=== PATIENT | male | born 1990 | race American Indian/Alaskan Native ===

== ENCOUNTER 2019-02-20 15:19 | Emergency (ER) | payer MEDICAID ==
[2019-02-20] MEDS ORDERED: SODIUM CHLORIDE 0.9% 500 ML 500 ML IV ONE (15:33)
[2019-02-20] MEDS ORDERED: ACETAMINOPHEN 500 MG TAB PO ONE (15:33)
[2019-02-20 16:08] LABS: Basophils % (Auto) 0.4 % (0.0-1.8); Hematocrit 43.2 % (35.5-45.6); Hemoglobin 14.5 gm/dl (11.8-15.2); Lymphocytes # (Auto) 0.7 K/mm3 (1.2-5.4); Lymphocytes % (Auto) 7.4 % (13.4-35.0); Mean Corpuscular HGB Conc 34 % (32-34); Mean Corpuscular Volume 89 fl (84-94); Monocytes # (Auto) 0.9 K/mm3 (0.0-0.8); Monocytes % (Auto) 9.4 % (0.0-7.3); Platelet Count 218 K/mm3 (140-440); Red Blood Count 4.86 M/mm3 (3.65-5.03); Red Cell Distribution Width 14.1 % (13.2-15.2)
[2019-02-20 16:17] LABS: INR 1.27 (0.87-1.13)
[2019-02-20 16:30] LABS: Alanine Aminotransferase 37 units/L (7-56); Albumin 3.8 g/dL (3.9-5); BUN/Creatinine Ratio 13; Blood Urea Nitrogen 14 mg/dL (9-20); Hemolysis Index 39
--- NOTE | 2019-02-20 16:31 | XRay Report ---
CHEST 1 VIEW [id number] INDICATION / CLINICAL INFORMATION: possible Sepsis. COMPARISON: None available. FINDINGS: SUPPORT DEVICES: None HEART / MEDIASTINUM: No significant abnormality. LUNGS / PLEURA: Increased density is seen in the retrocardiac area with poor definition of the left h emidiaphragm. Findings are of concern for pneumonitis. Right lung field is clear. There may be a smal l left pleural effusion. No pneumothorax. ADDITIONAL FINDINGS: No significant additional findings. IMPRESSION: Probable left lower lobe pneumonia. Recommend clinical correlation and follow-up. Signer Name: Brandon Canela MD Signed: 02/20/2019 4:26 PM Workstation Name: [id number]
[2019-02-20] MEDS ORDERED: SODIUM CHLORIDE 0.9% 1000 ML 1,000 ML IV ONE (17:26)
[2019-02-20] MEDS ORDERED: cefTRIAXone/NS 1 GM/50 ML 1 GM/50 ML BAG IV ONE (17:27)
--- NOTE | 2019-02-20 17:38 | Emergency Department Report ---
ED General Adult HPI - General Chief complaint: Fever Stated complaint: VOMIT Time Seen by Provider: 02/20/19 17:14 Source: patient Mode of arrival: Ambulatory Limitations: No Limitations - History of Present Illness Initial comments: 28 yo male reports nausea,vomiting, cough and fever started last night. Children at home with same symptoms. Denies any PMH, Non-smoker. He denies chest pain , sob, abdominal pain and diarrhea. -: Sudden Severity scale (0 -10): 0 Quality: aching Improves with: none Worsens with: none Associated Symptoms: cough, fever/chills, loss of appetite, malaise, nausea/vomiting. denies: confusion, chest pain, diaphoresis, headaches, rash, seizure, shortness of breath, syncope, weakness Treatments Prior to Arrival: none - Related Data Previous Rx's Medication Instructions Recorded Last Taken Type RX: Azithromycin [Zithromax Z-MALLORY] 0 mg PO DAILY #6 tab 02/20/19 Unknown Rx Allergies Allergy/AdvReac Type Severity Reaction Status Date / Time No Known Allergies Allergy Unverified 02/20/19 15:29 ED Review of Systems ROS: Stated complaint: VOMIT Other details as noted in HPI Comment: All other systems reviewed and negative Constitutional: chills, fever, malaise ENT: denies: ear pain, throat pain, congestion Respiratory: denies: cough, orthopnea, shortness of breath, SOB with exertion, wheezing Cardiovascular: denies: chest pain, palpitations, dyspnea on exertion Endocrine: no symptoms reported. denies: excessive sweating Gastrointestinal: nausea, vomiting. denies: abdominal pain, diarrhea, constipation, hematochezia Musculoskeletal: myalgia Skin: denies: rash, lesions Neurological: denies: headache, weakness, numbness, paresthesias, confusion ED Past Medical Hx - Past Medical History Previous Medical History?: No - Surgical History Past Surgical History?: No - Social History Smoking Status: Current Every Day Smoker Substance Use Type: None - Medications Home Medications: Home Medications Medication Instructions Recorded Confirmed Last Taken Type RX: Azithromycin [Zithromax Z-MALLORY] 0 mg PO DAILY #6 tab 02/20/19 Unknown Rx ED Physical Exam - General Limitations: No Limitations General appearance: alert, in no apparent distress - Head Head exam: Present: atraumatic - Eye Eye exam: Present: normal appearance - ENT ENT exam: Present: normal exam, mucous membranes dry, other (unable to visualize TM both with cerumen impaction ) - Neck Neck exam: Present: normal inspection, full ROM. Absent: tenderness, meningismus, lymphadenopathy - Respiratory Respiratory exam: Present: decreased breath sounds (right ) - Cardiovascular Cardiovascular Exam: Present: regular rate, normal rhythm, normal heart sounds - GI/Abdominal GI/Abdominal exam: Present: normal bowel sounds. Absent: soft, distended, tenderness, guarding, rebound - Extremities Exam Extremities exam: Present: normal inspection - Back Exam Back exam: Present: normal inspection - Neurological Exam Neurological exam: Present: alert - Psychiatric Psychiatric exam: Present: normal affect - Skin Skin exam: Present: warm, dry, intact ED Course Vital Signs 02/20/19 02/20/19 02/20/19 15:31 17:02 18:37 Temperature 102.9 F H 100.7 F H Pulse Rate 120 H 79 Respiratory 16 Rate Blood Pressure 82/41 Blood Pressure 101/63 [Right] O2 Sat by Pulse 93 100 Oximetry 02/20/19 19:45 Temperature Pulse Rate 72 Respiratory 18 Rate Blood Pressure Blood Pressure 96/52 [Right] O2 Sat by Pulse 100 Oximetry ED Medical Decision Making - Lab Data Result diagrams: 02/20/19 15:34 02/20/19 15:34 - Radiology Data Radiology results: report reviewed CXR FINDINGS: SUPPORT DEVICES: None HEART / MEDIASTINUM: No significant abnormality. LUNGS / PLEURA: Increased density is seen in the retrocardiac area with poor definition of the left hemidiaphragm. Findings are of concern for pneumonitis. Right lung field is clear. There may be a small left pleural effusion. No pneumothorax. ADDITIONAL FINDINGS: No significant additional findings. IMPRESSION: Probable left lower lobe pneumonia. Recommend clinical correlation and follow-up. - Medical Decision Making 28 yo male with nausea vomiting and fever x 1 day. Known sick contacts at home ( his children). Upon arrival temp 102.9. Repeat Temp 100.7 Given 2 L NS Initial Lactic acid 2.0 Repeat lactic 1.6 CBC, CMP no acute findings. CXR probable LLL pneumonia _ RX for Z-pack Pt in no distress safe for discharge home with outpatient follow up. All findings discussed with patient and . Critical Care Time: No Critical care attestation.: If time is entered above; I have spent that time in minutes in the direct care of this critically ill patient, excluding procedure time. ED Disposition Clinical Impression: Left lower lobe pneumonia Qualifiers: Pneumonia type: due to unspecified organism Qualified Code(s): J18.9 - Pneumonia, unspecified organism Disposition: TO HOME OR SELFCARE Is pt being admited?: No Does the pt Need Aspirin: No Condition: Stable Instructions: Community-acquired Pneumonia (ED) Additional Instructions: Rest for the next 3-4 days. Drink plenty fluids. Take medication as prescribed. Follow up with PCP in 3-5 days. Return to the ER for worsening symptoms such as chest pain, fever, shortness of breath. Take advil or tylenol as directed by package insert for fever and or pain . Prescriptions: RX: Azithromycin [Zithromax Z-MALLORY] 0 mg PO DAILY #6 tab Referrals: PRIMARY CAREMD [Primary Care Provider] - 3-5 Days JOMAR LALA MD [Staff Physician] - 3-5 Days Forms: Work/School Release Form(ED) Time of Disposition: 18:13
[2019-02-20 20:31] VITALS: BP 96/52
== END 2019-02-20 19:45 | disposition home or self-care (01) ==
LOC: ED 15:19
DX: J18.9 Pneumonia, unspecified organism (principal); F17.200 Nicotine dependence, unspecified, uncomplicated
CPT/HCPCS: 36415; 71045; 80053; 82140; 82805; 85025; 85610; 87040; 87400; 93005; 93010; 96361; 96365; 99284; J0696; J7030; J7040